=== PATIENT | female | born 1955 | race Caucasian/White ===

== ENCOUNTER → 2016-04-23 | Outpatient (CLI) | payer OTHER ==
--- NOTE | 2016-04-23 14:55 | PN ---
DATE OF SERVICE: 04/23/2016 60-year-old lady has been followed in the sleep center for treatment of severe obstructive sleep apnea-hypopnea syndrome. We discussed results of sleep studies with the patient and family in details. Sleep study showed apnea-hypopnea index 68.3 with oxygen desaturation to 69.8. Presently the patient is on treatment with CPAP with a pressure of 12 cm of water and oxygen supplement. With this therapy, patient feels better during this sleep and during the day. She is not as sleepy as before. I checked her CPAP unit. CPAP pressure is 12 cm of water. Usage is 100% of the time more than 4 hours. Leak is not significant up to 2 liters per minute. Apnea-hypopnea index reading from the machine for the last month is only 1.3. [place] Sleepiness Scale today is only 2. MEDICATIONS: 1. Albuterol. 2. Furosemide. 3. Potassium supplement. 4. Aspirin. 5. Montelukast. 6. Spiriva. During physical exam, the patient in no distress. VITAL SIGNS: BP 133/66, HR 84, RR 16. Weight 224. Temp 98.1. Oxygen saturation on 2 liters per minute oxygen supplement 92%. HEENT: EMILYRWAYLON, LUIS ARMANDOMI. LUNGS: Clear. HEART: S1, S2 regular. ABDOMEN: Obese, soft, nontender. EXTREMITIES: No edema. IMPRESSION: 1. Obstructive sleep apnea/hypopnea syndrome on full control with CPAP at 12 cm of water. Patient demonstrating 100% compliance with treatment benefiting from treatment. 2. Obesity. 3. Chronic obstructive pulmonary disease on treatment with oxygen 24 hours at 2 liters per minute. 4. History of smoking for about ( ) pack-years. 5. History of pulmonary hypertension. 6. Cor pulmonale. 7. Status post cholecystectomy. PLAN: 1. Continue treatment with the CPAP every night for the whole night. 2. Losing weight. 3. Sleep hygiene with regular time in bed for at least 8 hours. 4. No driving if feeling any sleepiness. 5. Prescription for all necessary CPAP supplies, including tube, filters mask. Thank you very much for allowing me to participate in the management of your patient. Sincerely, Hernesto Mckeon MD, PhD, FAASM. Diplomat of [place] Board of [employer], Sleep Medicine Board by [place] [employer] [place] [employer] of [employer] Medicine Host Coordinator of [facility] [place]
== END | disposition home or self-care (01) ==

== ENCOUNTER → 2016-08-24 | Outpatient (CLI) | payer OTHER ==
[2016-08-24 10:05] LABS: Bilirubin, Delta 0.3 mg/dL (0.0-0.2); Total Bilirubin 0.8 mg/dL (0.2-1.3)
--- NOTE | 2016-08-24 10:59 | US ---
EXAMINATION TYPE: US abdomen complete DATE OF EXAM: 08/24/2016 9:29 AM COMPARISON: 12/02 CLINICAL HISTORY: Fatty liver K76.0. larger habitus, some limitations as pt is sob, on o2 EXAM MEASUREMENTS: Liver Length: 16.6 cm Gallbladder Wall: Surgically absent CBD: 0.9 cm Spleen: 9.4 cm Right Kidney: 10.2 x 3.5 x 6.0 cm Left Kidney: 10.5 x 4.0 x 5.9 cm Some exam limitations due to pt size and increased bowel gas. Pancreas: gassed out Liver: wnl as seen, some limitations Gallbladder: surgically absent CBD: wnl Spleen: wnl Right Kidney: wnl Left Kidney: wnl Upper IVC: wnl Abd Aorta: gassed out The liver is homogenous. The intrahepatic portion of the IVC and proximal abdominal aorta are within normal limits. Common bile duct is unremarkable. The visualized portions of the pancreas are homog enous. The spleen is unremarkable. Kidneys are symmetric and free of hydronephrosis. No renal lesi ons are seen. IMPRESSION: No significant abnormality.
== END | disposition home or self-care (01) ==
LOC: RADUSWWP 08:50
DX: K76.0 Fatty (change of) liver, not elsewhere classified (principal)
CPT/HCPCS: 36415; 76700; 80076; 82105

== ENCOUNTER → 2017-02-23 | Outpatient (CLI) | payer OTHER ==
[2017-02-23 09:52] LABS: Basophils # (A) 0.1 k/uL (0-0.2); Basophils % (A) 1 %; CH 28.2; CHCM 31.4; Eosinophils # (A) 0.3 k/uL (0-0.7); Eosinophils % (A) 3 %; HCT 45.4 % (34.0-46.0); HGB 14.1 gm/dL (11.4-16.0); Luc # (Auto) 0.15; Luc % (Auto) 2; Lymphocytes # (A) 1.7 k/uL (1.0-4.8); Lymphocytes % (A) 17 %; MCH 28.1 pg (25.0-35.0); MCHC 31.2 g/dL (31.0-37.0); MCV 90.1 fL (80.0-100.0); Mean Platelet Volume 7.1; Monocytes # (A) 0.3 k/uL (0-1.0); Monocytes % (A) 3 %; Neutrophils # (A) 7.6 k/uL (1.3-7.7); Neutrophils % (A) 75 %; RBC 5.03 m/uL (3.80-5.40); RDW 14.7 % (11.5-15.5); WBC 10.1 k/uL (3.8-10.6); WBC (Perox) 9.72
[2017-02-23 10:10] LABS: ALT 32 U/L (9-52); AST 19 U/L (14-36); Alkaline Phosphatase 117 U/L (38-126); Anion Gap 9 mmol/L; Blood Urea Nitrogen 11 mg/dL (7-17); Calcium 9.6 mg/dL (8.4-10.2); Carbon Dioxide 30 mmol/L (22-30); Chloride 103 mmol/L (98-107); Cholesterol 178 mg/dL (<200); Glucose 108 mg/dL (74-99); HDL Cholesterol 66 mg/dL (40-60); Non-African American GFR(MDRD) >60 (>60 ml/min/1.73 sqM); Potassium 4.1 mmol/L (3.5-5.1); Sodium 142 mmol/L (137-145); Total Bilirubin 0.6 mg/dL (0.2-1.3); Total Protein 7.1 g/dL (6.3-8.2)
== END | disposition home or self-care (01) ==
LOC: LABWHC1 09:12
DX: Z00.00 Encounter for general adult medical examination without abnormal findings (principal)
CPT/HCPCS: 36415; 80053; 80061; 82306; 84443; 85025

== ENCOUNTER → 2017-04-16 | Outpatient (CLI) | payer OTHER ==
--- NOTE | 2017-04-20 09:47 | MM ---
Reason for exam: screening (asymptomatic). Last mammogram was performed 1 year and 4 months ago. History: Patient is postmenopausal. Physical Findings: A clinical breast exam by your physician is recommended on an annual basis and results should be correlated with mammographic findings. MG Screening Mammo w CAD Bilateral CC and MLO view(s) were taken. Prior study comparison: December 03, 2015, bilateral MG screening mammo w CAD. October 16, 2014, bilateral MG screening mammo w CAD. The breast tissue is heterogeneously dense. This may lower the sensitivity of mammography. Stable benign calcifications. No significant changes when compared with prior studies. ASSESSMENT: Benign, BI-RAD 2 RECOMMENDATION: Routine screening mammogram of both breasts in 1 year.
== END | disposition home or self-care (01) ==
LOC: RADMAMWWP 11:36
PROVIDERS: ATTEND Internal Medicine
DX: Z12.31 Encounter for screening mammogram for malignant neoplasm of breast (principal)

== ENCOUNTER → 2017-07-15 | Outpatient (CLI) | payer OTHER ==
--- NOTE | 2017-07-15 11:18 | PN ---
PROGRESS NOTE DATE OF SERVICE: 07/15/2017. The 61-year-old lady has been followed in Sleep Center for treatment of severe obstructive sleep apnea-hypopnea syndrome. The patient successfully continued to use her CPAP equipment every night without significant problems and sleeps well with that. [place] Sleepiness Scale today is only 2. The patient continued to use oxygen. Presently she is on 4 L/minute oxygen supplement 24 hours a day. I checked patient's CPAP unit. CPAP pressure is 12 cm of water. Usage is practically 100%, 179 out of 180 nights for usage of more than 4 hours. Average usage 6.3 hours. Apnea-hypopnea index for the last 6 months 1.0, which is perfect. MEDICATIONS: Albuterol, Ventolin, Symbicort, Ellipta, Furosemide, aspirin and montelukast. PHYSICAL EXAM: lady without distress, BP 140/66, HR 90, RR 16, height 4 feet 11 inches, weight 212, BMI 42.8, temperature 97.1. Oxygen saturation on 4 L/minute oxygen supplement 93%. Oropharynx: Low position of soft palate, very large retrognathia mass about 8 mm. ABDOMEN: Obese. Neck Supple, no JVD. Thyroid is not palpable. LUNGS Clear to percussion and to auscultation. Good air exchange. No wheezing or rhonchi. HEART S1, S2 regular. No murmurs, gallops, or rubs. ABDOMEN : Obese. Soft and nontender. Bowel sounds are present. No organomegaly appreciated. STUDENT SUCCESS COUNSELOR Awake, alert, and oriented X3. Cranial nerves 2 to 7 intact. There is no fasciculation or atrophy. noted. No focal deficits observed. Extremities: Minimal up to 1+ ankle edema. IMPRESSION: 1. Severe obstructive sleep apnea-hypopnea syndrome on full control with CPAP at 12 cm of water patient demonstrated 100% compliance with treatment benefitting from treatment. 2. Obesity patient lost 12 pounds since previous visit. 3. Chronic obstructive pulmonary disease. 4. History of pulmonary hypertension. 5. History of cor pulmonale. 6. Status post cholecystectomy. PLAN: 1. Patient will continue treatment with CPAP equipment every night for the whole night with the same regimen. 2. Prescription for all necessary CPAP supplies including mask, tube, filters. 3. Continue losing weight. 4. Sleep hygiene with regular time in bed for at least 8 hours. 5. No driving if feeling sleepiness. 6. Followup visit in 1 year or earlier if patient has any problems related to sleep. Thank you very much for allowing me to participate in management of this patient. Sincerely, Hernesot Mckeon MD, PhD, FAASM Diplomat of [employer] Board [employer] Specialties [employer] Board of Internal Medicine Software Architect of [facility] [place] MMODL / ROSIEN: [id number] /
== END | disposition home or self-care (01) ==
LOC: SLEEP 10:06
PROVIDERS: ATTEND Internal Medicine
DX: G47.33 Obstructive sleep apnea (adult) (pediatric) (principal); E66.9 Obesity, unspecified; J44.9 Chronic obstructive pulmonary disease, unspecified; Z86.79 Personal history of other diseases of the circulatory system; Z90.49 Acquired absence of other specified parts of digestive tract; Z99.89 Dependence on other enabling machines and devices; Z79.899 Other long term (current) drug therapy; Z79.82 Long term (current) use of aspirin

== ENCOUNTER → 2017-11-10 | Outpatient (CLI) | payer OTHER ==
[2017-11-10 09:00] LABS: Anion Gap 9 mmol/L; Blood Urea Nitrogen 13 mg/dL (7-17); Calcium 9.2 mg/dL (8.4-10.2); Carbon Dioxide 30 mmol/L (22-30); Chloride 100 mmol/L (98-107); Cholesterol 183 mg/dL (<200); Glucose 99 mg/dL (74-99); HDL Cholesterol 70 mg/dL (40-60); LDL Cholesterol,Calculated 97 mg/dL (0-99); Magnesium 2.2 mg/dL (1.6-2.3); Potassium 4.3 mmol/L (3.5-5.1); Sodium 139 mmol/L (137-145); Triglycerides 79 mg/dL (<150)
== END | disposition home or self-care (01) ==
LOC: LABWHC1 08:06
PROVIDERS: ATTEND Nurse Practitioner Adult Health
DX: I10 Essential (primary) hypertension (principal); E78.5 Hyperlipidemia, unspecified
CPT/HCPCS: 36415; 80048; 80061; 83735

== ENCOUNTER → 2018-05-03 | Outpatient (CLI) | payer OTHER ==
--- NOTE | 2018-05-05 16:27 | MM ---
Reason for exam: screening (asymptomatic). Last mammogram was performed 1 year and 1 month ago. History: Patient is postmenopausal. MG Screening Mammo w CAD Bilateral CC and MLO view(s) were taken. Prior study comparison: April 16, 2017, bilateral MG screening mammo w CAD. December 03, 2015, bilateral MG screening mammo w CAD. The breast tissue is heterogeneously dense. This may lower the sensitivity of mammography. Chronic nodularity in the left breast. Increased multicentric nodularity in the right breast. ASSESSMENT: Incomplete: need additional imaging evaluation, BI-RAD 0 RECOMMENDATION: Ultrasound of the right breast.
== END | disposition home or self-care (01) ==
LOC: RADMAMWWP 09:29
PROVIDERS: ATTEND Internal Medicine
DX: Z12.31 Encounter for screening mammogram for malignant neoplasm of breast (principal)
CPT/HCPCS: 77067

== ENCOUNTER → 2018-05-16 | Outpatient (CLI) | payer OTHER ==
--- NOTE | 2018-05-17 09:27 | USB ---
Reason for exam: additional evaluation requested from abnormal screening. History: Patient is postmenopausal. Physical Findings: Nurse did not find any significant physical abnormalities on exam. US Breast Workup RT Right complete breast ultrasound includes all four quadrants, the retroareolar region and axilla. Finding demonstrates a 0.5 x 0.3 x 0.5cm cystic lesion at 7 o'clock and a 0.4 x 0.3 x 0.4cm cystic lesion at 10 o'clock. These results were verbally communicated with the patient and result sheet given to the patient on 05/16/18. ASSESSMENT: Benign, BI-RAD 2 RECOMMENDATION: Return to routine screening mammogram schedule for both breasts.
== END | disposition home or self-care (01) ==
LOC: RADUSWWP 08:27
PROVIDERS: ATTEND Internal Medicine
DX: R92.8 Other abnormal and inconclusive findings on diagnostic imaging of breast (principal)

== ENCOUNTER → 2018-10-13 | Outpatient (CLI) | payer OTHER ==
--- NOTE | 2018-10-13 13:08 | SFUN ---
SLEEP CENTER FOLLOW UP NOTE DATE OF SERVICE: 10/13/2018 This 63-year-old lady has been followed in sleep center for treatment of obstructive sleep apnea-hypopnea syndrome. The patient continued to use her CPAP equipment every night for the whole night. No problem with the mask or machine. No snoring with the machine. [place] Sleepiness Scale today is 6, which is in normal range. I checked patient's CPAP unit, CPAP pressure is 12 cm of water. Usage is 29 out of 30 nights for more than 4 hours. Average usage is 6 hours. Leak is 26 L/minute which is borderline for the full face mask. Apnea-hypopnea index reading for the last month only 0.5, which is absolutely perfect. Patient continued to use her oxygen 4 L/minute 24 hours per day. MEDICATIONS: Albuterol, Ventolin, Symbicort, Ellipta, furosemide, aspirin, montelukast. PHYSICAL EXAMINATION: During physical exam, patient in no distress. VITAL SIGNS: BP 139/67, HR 82, RR 16, height 4 feet 11 inches, weight 215 pounds, body mass index 43.2, temperature 97, oxygen saturation at 4 L/minute of oxygen 91%. HEENT: PERRLA, EOMI. Oropharynx low position of soft palate, retrognathia about 8 mm. NECK: Supple, no JVD. Thyroid is not palpable. LUNGS: Clear to percussion and to auscultation. Good air exchange. No wheezing or rhonchi. HEART: S1, S2 regular. No murmurs, gallops, or rubs. ABDOMEN: Obese. EXTREMITIES: No clubbing or cyanosis. MEAT LUGGER: Awake, alert, and oriented X3. Cranial nerves 2 to 7 intact. There is no fasciculation or atrophy. noted. No focal deficits observed. IMPRESSION: 1. Severe obstructive sleep apnea-hypopnea syndrome. The patient demonstrated 100% compliance with treatment, benefitting from treatment, normal respiration according to reading from the machine. The patient continued to use oxygen 4 L/minute 24 hours a day. 2. Obesity. Patient increased her weight around 3 pounds comparing with the visit one year ago. 3. Chronic obstructive pulmonary disease. 4. History of pulmonary hypertension. 5. History of cor pulmonale. 6. Status post cholecystectomy. PLAN: 1. Patient will continue to use CPAP equipment every night. 2. Losing weight. 3. Sleep hygiene with regular time in bed for at least 8 hours. 4. No driving if feeling any sleepiness. 5. Prescription for all necessary CPAP supplies including mask, tube, filters. Thank you very much for allowing me to participate in management of your patient. Sincerely, Hernesto Mckeon MD, PhD, FAASM Diplomat of [place] Board of Medical Specialties [place] Board of Internal Medicine Office Executive of [facility] [place] MMODL / ROSIEN: [id number] /
== END ==
LOC: SLEEP 11:22
PROVIDERS: ATTEND Internal Medicine
DX: G47.33 Obstructive sleep apnea (adult) (pediatric) (principal); E66.9 Obesity, unspecified; J44.9 Chronic obstructive pulmonary disease, unspecified; I27.20 Pulmonary hypertension, unspecified; I27.81 Cor pulmonale (chronic); Z90.49 Acquired absence of other specified parts of digestive tract; Z99.89 Dependence on other enabling machines and devices; Z79.899 Other long term (current) drug therapy; Z79.82 Long term (current) use of aspirin

== ENCOUNTER → 2019-03-24 | Outpatient (CLI) | payer OTHER ==
[2019-03-24 17:12] LABS: African American GFR (CKD) 112.4 (60.0-200.0); Albumin 4.2 g/dL (3.80-4.90); Albumin/Globulin Ratio 1.83 (1.60-3.17); Anion Gap 8.1 mmol/L (4.00-12.00); BUN/Creat Ratio 21.67 Ratio (12.00-20.00); Calcium 9.4 mg/dL (8.7-10.3); Carbon Dioxide 31.9 mmol/L (21.6-31.8); Chol/HDL Ratio 2.71; Globulin 2.3 g/dL (1.6-3.3); LDL Cholesterol,Calculated 90.6 mg/dL (0.0-131.0); Potassium 4.7 mmol/L (3.5-5.5); Total Bilirubin 0.6 mg/dL (0.3-1.2); Total Protein 6.5 g/dL (6.2-8.2); VLDL Calculation 17.4 mg/dL (5.00-40.00)
== END | disposition home or self-care (01) ==
LOC: LABWHC1 10:17
DX: I10 Essential (primary) hypertension (principal); I27.20 Pulmonary hypertension, unspecified; E55.9 Vitamin D deficiency, unspecified
CPT/HCPCS: 36415; 80053; 80061; 82306; 84443

== ENCOUNTER → 2019-10-03 | Outpatient (CLI) | payer OTHER ==
--- NOTE | 2019-10-05 11:22 | MM ---
Reason for exam: screening (asymptomatic). Last mammogram was performed 1 year and 5 months ago. History: Patient is postmenopausal. Physical Findings: A clinical breast exam by your physician is recommended on an annual basis and results should be correlated with mammographic findings. MG Screening Mammo w CAD Bilateral CC and MLO view(s) were taken. XCCL view(s) were taken of the left breast. Prior study comparison: May 03, 2018, bilateral MG screening mammo w CAD. April 16, 2017, bilateral MG screening mammo w CAD. There are scattered fibroglandular densities. There are benign appearing round calcifications bilaterally. There is chronic nodularity bilaterally. There is no new dominant lesion. Ultrasound of right breast in 2019 demonstrated simple cysts. Stable prominent bilateral axillary lymph nodes. ASSESSMENT: Benign, BI-RAD 2 RECOMMENDATION: Routine screening mammogram of both breasts in 1 year.
== END | disposition home or self-care (01) ==
LOC: RADMAMWWP 09:28
PROVIDERS: ATTEND Family Medicine
DX: Z12.31 Encounter for screening mammogram for malignant neoplasm of breast (principal)
CPT/HCPCS: 77067

== ENCOUNTER → 2020-02-24 | Outpatient (CLI) | payer OTHER ==
--- NOTE | 2020-02-24 16:08 | XR ---
EXAMINATION TYPE: XR chest 2V DATE OF EXAM: 02/24/2020 CLINICAL HISTORY: J44.9 J43.9 Z99.81 J84.10. TECHNIQUE: Frontal and lateral view of the chest. COMPARISON: 11/23/2015 chest radiograph FINDINGS: The cardiomediastinal silhouette is within normal limits for size. Pulmonary vasculature i s normal. Opacity at the right medial base with silhouetting of the right heart border likely represe nts atelectasis. There is no pleural effusion, or pneumothorax seen. The osseous structures are intac t. IMPRESSION: Atelectasis of the right middle lobe. Otherwise no acute cardiopulmonary process.
== END | disposition home or self-care (01) ==
LOC: RADXRMAIN 12:13
PROVIDERS: ATTEND Family Medicine
DX: J98.11 Atelectasis (principal); Z99.81 Dependence on supplemental oxygen
CPT/HCPCS: 71046

== ENCOUNTER → 2020-03-06 | Outpatient (CLI) | payer OTHER ==
--- NOTE | 2020-03-06 20:48 | SFUN ---
SLEEP CENTER FOLLOW UP NOTE DATE OF SERVICE: 03/06/2020 This is a 64-year-old lady who has been followed in Sleep Center for treatment of obstructive sleep apnea-hypopnea syndrome. Patient successfully continues to use her CPAP equipment every night for the whole night without significant problems related to mask fitting, pressure, or humidification. [place] Sleepiness Scale today is 7. I checked her CPAP unit. CPAP pressure is 12 cm of water, usage 29/30 nights for more than 4 hours. Average usage is 6 hours per night. Leak is 13 L/minute which is acceptable. Apnea-hypopnea index only 0.2, which is absolutely perfect. MEDICATIONS: Albuterol, Ventolin, furosemide 20 mg once a day, aspirin 81 mg once a day, montelukast 10 mg once a day, Symbicort inhaler, Spiriva inhaler. PHYSICAL EXAMINATION: GENERAL: A pleasant patient without any distress. VITAL SIGNS: BP 128/83, HR 90, RR 15. Height 4 feet 11 inches, weight 227, BMI 45.8, temperature 98.0, oxygen saturation 95% HEENT: PERRLA, EOMI, evaluation of oropharynx showed tongue protrudes midline. Low position of soft palate. Significant retrognathia. NECK: Supple, no JVD. Thyroid is not palpable. LUNGS: Clear to percussion and to auscultation. Good air exchange. No wheezing or rhonchi. HEART: S1, S2 regular. No murmurs, gallops, or rubs. ABDOMEN: Soft and nontender. Bowel sounds are present. No organomegaly appreciated. Obese. EXTREMITIES: No clubbing or cyanosis. POPULATION HEALTH MANAGER: Awake, alert, and oriented X3. Cranial nerves 2 to 7 intact. There is no fasciculation or atrophy. noted. No focal deficits observed. IMPRESSION: 1. Obstructive sleep apnea-hypopnea syndrome in severe range. Patient demonstrated 100% compliance with treatment and benefitting from treatment. 2. Obesity. 3. Chronic obstructive pulmonary disease. 4. History of pulmonary hypertension. 5. History of cor pulmonale. 6. Status post cholecystectomy. PLAN: 1. Patient will continue to use PAP equipment every night for the whole night. 2. Sleep hygiene with regular time in bed for at least 7-1/2 to 8 hours. 3. Precautions related to driving. No driving if feeling sleepiness. 4. I will maintain all necessary prescription for PAP supplies including mask, tube, filters. 5. Watching weight. 6. No driving if feeling sleepiness. 7. Follow-up visit in 6 months or earlier if patient has any problems. Thank you very much for allowing me to participate in the management of your patient. Sincerely, Hernesto Mckeon MD, PhD, FAASM Diplomat of [place] Board of Medical Specialties [employer] Board of Internal Medicine Airport Ramp Supervisor of [facility] [place] MMODL / ROSIEN: [id number] /
== END | disposition home or self-care (01) ==
LOC: SLEEP 13:33
PROVIDERS: ATTEND Internal Medicine
DX: G47.33 Obstructive sleep apnea (adult) (pediatric) (principal); J44.9 Chronic obstructive pulmonary disease, unspecified; Z86.79 Personal history of other diseases of the circulatory system; Z90.49 Acquired absence of other specified parts of digestive tract; Z79.899 Other long term (current) drug therapy; Z79.82 Long term (current) use of aspirin; Z79.51 Long term (current) use of inhaled steroids; Z99.89 Dependence on other enabling machines and devices

== ENCOUNTER → 2020-09-26 | Outpatient (CLI) | payer MEDICARE, OTHER ==
--- NOTE | 2020-09-27 07:36 | SFUN ---
SLEEP CENTER FOLLOW UP NOTE DATE OF SERVICE: 09/26/2020 This 65-year-old lady has been followed in Sleep Center for treatment of obstructive sleep apnea-hypopnea syndrome. The patient successfully continues to use her CPAP equipment every night for the whole night. Sleeps well with the machine. No sleepiness during the day. [place] Sleepiness Scale is 3. She is on oxygen supplement 24 hours at 4 L/minute. She came for the appointment with oxygen supplement at [facility]. I checked her CPAP unit. Pressure is 12 cm of water, usage is 28/30 nights and 25/30 minutes more than 4 hours, average usage 5.2 hours per night. Leak is only 1 L/minute which indicate very good fitting of the mask. Apnea-hypopnea index is only 0.2, which is absolutely perfect. MEDICATIONS: Albuterol, Ventolin, furosemide 20 mg once a day, potassium supplement, aspirin 81 mg once a day, Montelukast 10 mg once a day, Symbicort 2 puffs twice a day, Spiriva once a day. PHYSICAL EXAMINATION: GENERAL: Patient in no distress. VITAL SIGNS: BP 121/76, HR 83, RR 18, height 4 feet 11 inches, weight 229.4 pounds, body mass index 46.2, temperature 97.7, oxygen saturation at room air 94%. HEENT: PERRLA, EOMI, evaluation of oropharynx showed tongue protrudes midline. Low position of soft palate. Significant retrognathia. NECK: Supple, no JVD. Thyroid is not palpable. LUNGS: Clear to percussion and to auscultation. Good air exchange. No wheezing or rhonchi. HEART: S1, S2 regular. No murmurs, gallops, or rubs. ABDOMEN: Obese, soft and nontender. Bowel sounds are present. No organomegaly appreciated. EXTREMITIES: No clubbing or cyanosis. BULL LADLE TENDER: Awake, alert, and oriented X3. Cranial nerves 2 to 7 intact. There is no fasciculation or atrophy. noted. No focal deficits observed. IMPRESSION: 1. Severe obstructive sleep apnea-hypopnea syndrome. Patient demonstrated great compliance with treatment, benefitting from treatment. 2. Obesity. 3. Chronic obstructive pulmonary disease. 4. History of pulmonary hypertension. 5. History of cor pulmonale. 6. Status post cholecystectomy. PLAN: 1. Patient will continue to use PAP equipment every night for the whole night. 2. Sleep hygiene with regular time in bed for at least 7-1/2 to 8 hours. 3. Precautions related to driving. No driving if feeling sleepiness. 4. I will maintain all necessary prescription for PAP supplies including mask, tube, filters. 5. Watching weight. 6. Follow-up visit in 6 months or earlier if patient has any problems. Thank you very much for allowing me to participate in the management of your patient. Sincerely, Hernesto Mckeon MD, PhD, FAASM Diplomat of [place] Board of Medical Specialties [place] Board of Internal Medicine Internal Controls Specialist of [facility] [place] MMODL / IJN: [id number] /
== END ==
LOC: SLEEP 09:50
PROVIDERS: ATTEND Internal Medicine
DX: G47.33 Obstructive sleep apnea (adult) (pediatric) (principal); E66.9 Obesity, unspecified; J44.9 Chronic obstructive pulmonary disease, unspecified; Z90.49 Acquired absence of other specified parts of digestive tract; Z86.79 Personal history of other diseases of the circulatory system; Z68.42 Body mass index [BMI] 45.0-49.9, adult; Z99.81 Dependence on supplemental oxygen; Z87.891 Personal history of nicotine dependence

== ENCOUNTER → 2021-03-27 | Outpatient (CLI) | payer MEDICARE, OTHER ==
--- NOTE | 2021-03-27 13:22 | SFUN ---
SLEEP CENTER FOLLOW UP NOTE DATE OF SERVICE: 03/27/2021 65-year-old lady has been followed in Sleep Center for treatment of obstructive sleep apnea-hypopnea syndrome. The patient continues to use her CPAP equipment every night, getting supplies in time. Her [place] Sleepiness Scale today is 4. I checked her CPAP unit. Pressure is 12. Usage is 28/30 nights for more than 4 hours with good compliance. Leak is 1 L/minute. Apnea-hypopnea index is only 0.2 which is absolutely normal. MEDICATIONS: Albuterol, Ventolin, furosemide 40 mg once a day, aspirin 81 mg once a day, montelukast 10 mg once a day, Symbicort 2 puffs twice a day, Spiriva 1 cap once a day, metformin 500 mg twice a day, pantoprazole 40 mg once a day, atorvastatin 10 mg once a day. PHYSICAL EXAMINATION: GENERAL: Patient in no distress. BP 142/70, HR 108, RR 20, height 4 feet 11 inches, weight 222.0, temperature 97.4, body mass index 44.8, oxygen 94% on 4 L/minute. OROPHARYNX: Low position of soft palate. NECK: Supple, no JVD. Thyroid is not palpable. LUNGS: Clear to percussion and to auscultation. Good air exchange. No wheezing or rhonchi. HEART: S1, S2 regular. Tachycardia. No murmurs, gallops, or rubs. ABDOMEN: Obese. Soft and nontender. Bowel sounds are present. No organomegaly appreciated. EXTREMITIES: No clubbing or cyanosis. FENDER MECHANIC APPRENTICE: Awake, alert, and oriented X3. Cranial nerves 2 to 7 intact. There is no fasciculation or atrophy. noted. No focal deficits observed. IMPRESSION: 1. Severe obstructive sleep apnea-hypopnea syndrome. Patient demonstrated good compliance with treatment. Normal respiration according to reading from the machine. 2. Chronic obstructive pulmonary disease. The patient is on oxygen supplement 24 hours. 3. Obesity. 4. History of pulmonary hypertension. 5. History of cor pulmonale. 6. Status post cholecystectomy. PLAN: 1. Patient will continue to use PAP equipment every night for the whole night. 2. Sleep hygiene with regular time in bed for at least 7-1/2 to 8 hours. 3. Precautions related to driving. No driving if feeling sleepiness. 4. I will maintain all necessary prescription for PAP supplies including mask, tube, filters. 5. Watching weight. 6. Follow-up visit in 6 months or earlier if patient has any problems. Thank you very much for allowing me to participate in the management of your patient. Sincerely, Hernesto Mckeon MD, PhD, FAASM Diplomat of [place] Board of Medical Specialties Sleep Medicine Board of [place] Board of Internal Medicine Fitness Attendant of [facility] [place] MMOTISL / THERESA: [id number] /
== END ==
LOC: SLEEP 11:28
PROVIDERS: ATTEND Internal Medicine
DX: G47.33 Obstructive sleep apnea (adult) (pediatric) (principal); J44.9 Chronic obstructive pulmonary disease, unspecified; Z99.81 Dependence on supplemental oxygen; E66.9 Obesity, unspecified; Z86.79 Personal history of other diseases of the circulatory system; Z90.49 Acquired absence of other specified parts of digestive tract; Z87.09 Personal history of other diseases of the respiratory system; Z68.41 Body mass index [BMI] 40.0-44.9, adult; Z99.89 Dependence on other enabling machines and devices; Z87.891 Personal history of nicotine dependence

== ENCOUNTER → 2021-05-20 | Outpatient (CLI) | payer MEDICARE, OTHER ==
[2021-05-20 18:23] LABS: Basophils # (A) 0.05 X 10*3/uL (0.00-0.10); Basophils % (A) 0.5 %; Eosinophils # (A) 0.18 X 10*3/uL (0.04-0.35); Eosinophils % (A) 1.9 %; HCT 41.8 % (37.2-46.3); HGB 12.4 g/dL (12.0-15.0); Lymphocytes # (A) 1.41 X 10*3/uL (0.90-5.00); Lymphocytes % (A) 14.7 %; MCH 26.7 pg (27.0-32.0); MCHC 29.7 g/dL (32.0-37.0); MCV 90.1 fL (80.0-97.0); Mean Platelet Volume 9.9 fL (9.5-12.2); Monocytes # (A) 0.52 X 10*3/uL (0.20-1.00); Monocytes % (A) 5.4 %; Neutrophils # (A) 7.39 X 10*3/uL (1.80-7.70); Platelet Count 353 X 10*3/uL (140-440); RBC 4.64 X 10*6/uL (4.10-5.20); RDW 15.1 % (11.5-14.5)
[2021-05-20 18:36] LABS: ALT 11 U/L (8-44); AST 13 U/L (13-35); African American GFR (CKD) 105.4 (60.0-200.0); Albumin 4.2 g/dL (3.8-4.9); Albumin/Globulin Ratio 1.56 (1.60-3.17); Alkaline Phosphatase 111 U/L (41-126); BUN/Creat Ratio 18.57 Ratio (12.00-20.00); Calcium 9.5 mg/dL (8.7-10.3); Carbon Dioxide 28.7 mmol/L (20.0-27.5); Chloride 100 mmol/L (96-109); Chol/HDL Ratio 2.02 Ratio; Globulin 2.7 g/dL (1.6-3.3); Glucose 100 mg/dL (70-110); LDL Cholesterol,Calculated 53.3 mg/dL (0.0-131.0); Non-African American GFR(CKD) 90.9 (60.0-200.0); Potassium 3.8 mmol/L (3.5-5.5); Sodium 142 mmol/L (135-145); Total Protein 6.9 g/dL (6.2-8.2); VLDL Calculation 14.98 mg/dL (5.00-40.00)
== END | disposition home or self-care (01) ==
LOC: LABWHC1 10:54
PROVIDERS: ATTEND Internal Medicine Geriatric Medicine
DX: D64.9 Anemia, unspecified (principal); E78.5 Hyperlipidemia, unspecified; R73.9 Hyperglycemia, unspecified
CPT/HCPCS: 36415; 80053; 80061; 83036; 85025

== ENCOUNTER → 2021-09-25 | Outpatient (CLI) | payer MEDICARE ==
--- NOTE | 2021-09-25 11:35 | P.PN ---
Subjective DATE: 09/25/2021 FOLLOW UP VISIT. Patient with obstructive sleep apnea hypopnea syndrome return to sleep center for follow-up visit. Patient touched but done over the machine and was afraid that she changed pressure in the machine. Subsequently she did not use machine for several weeks, getting PAP supplies in time. The patient does not have significant problems with the mask. [place] sleepiness scale is 6. I checked information from PAP unit. PAP unit pressure 12 cm H2O. When patient used CPAP unit usage was more then 90 % for more then 4 hours, average 5.3 hours per night. Leak is 1 l/m, which is in acceptable range. Apnea Hypopnea Index is 0.4, which is normal. MEDICATIONS:1. Albuterol 2. Ventolin 3. Furosemide 40 mg once a day 4. Aspirin 81 mg once a day 5. Montelucast 10 mg once a day. 6. Symbicort 7. Spiriva 8. Metformin 500 mg twice a day. During physical exam: GENERAL: A pleasant patient without any distress. VITAL SIGNS: BP 130/70, HR 97, RR 20, weight 219.6, temperature 97.6, oxygen saturation at room air 89. HEENT: PERRLA, EOMI.low position of soft palate . NECK: Supple. No JVD. LUNGS: Clear to percussion and to auscultation. Good air exchange. No wheezing or rhonchi. HEART: S1, S2 regular. ABDOMEN: Soft and nontender. Obese EXTREMITIES: No clubbing or cyanosis. RESEARCH ASSOCIATE POLICY: Awake, alert, and oriented x3. No focal deficit. Impressions: 1. Obstructive sleep apnea-hypopnea syndrome. Normal respiration on CPAP. 2. Chronic obstructive pulmonary disease. The patient is on oxygen supplement 24 hours. 3. Obesity. 4. History of pulmonary hypertension. 5. History of cor pulmonary. 6. Status post cholecystectomy. Plan: 1. Continue using PAP equipment every night for the whole night. 2. To change air filter at least 1-2 times per month. 3. PAP unit should stay lower then position of the head. 4. Advised patient to remove all remaining water from humidifier canister daily and make it dry after each usage. Refill canister with fresh distilled water before each usage. 5. Sleep hygiene with regular time in bed for at least 8 hours. 6. Precautions related to driving. No driving if feel any sleepiness. 7. I will maintain prescription for PAP supplies including mask, tube, filters. 8. Follow up visit in 6 months or earlier if patient has any problems. 9. Watching weight. Thank you very much for allowing me to participate in the management of your patient. Hernesto Mckeon MD, PhD, FAASM. Diplomat of [place] Board of Sleep Medicine, Sleep Medicine Board by [place] [employer] of Internal Medicine Brine Maker of [facility] [place]
== END ==
LOC: SLEEP 10:47
PROVIDERS: ATTEND Internal Medicine
DX: G47.33 Obstructive sleep apnea (adult) (pediatric) (principal); Z99.89 Dependence on other enabling machines and devices; J44.9 Chronic obstructive pulmonary disease, unspecified; Z99.81 Dependence on supplemental oxygen; E66.9 Obesity, unspecified; I27.20 Pulmonary hypertension, unspecified; Z90.49 Acquired absence of other specified parts of digestive tract; Z79.51 Long term (current) use of inhaled steroids; Z79.899 Other long term (current) drug therapy; Z87.891 Personal history of nicotine dependence

== ENCOUNTER → 2022-04-09 | Outpatient (CLI) | payer MEDICARE, OTHER ==
--- NOTE | 2022-04-09 12:12 | P.PN ---
Subjective DATE: 04/09/2022 FOLLOW UP VISIT. Patient with obstructive sleep apnea hypopnea syndrome return to sleep center for follow-up visit. Information from previous visit have been reviewed. The patient does not have significant problems with the mask, PAP unit and humidification. [place] sleepiness scale is 5, which is normal. I checked information from PAP unit. PAP unit pressure 12 cm H2O. Usage is only 9 nights. Leak is 1 l/m, which is in acceptable range. Apnea Hypopnea Index is 0.1, which is normal. MEDICATIONS:1. Pantoprazole 40 mg once a day 2. Atorvastatin 10 mg once a day 3. Symbicort 4. Metformin 500 mg twice a day 5. Albuterol 6. Ventolin 7. Aspirin 8. Montelucast furosemide During physical exam: GENERAL: A pleasant patient without any distress. VITAL SIGNS: BP 148/65, HR 113, RR 20 , weight 217, body mass index 43.6, temperature 98.2, oxygen saturation at room air 92 % on 4 L/m oxygen supplement . HEENT: PERRLA, EOMI.low position of soft palate . NECK: Supple. No JVD. LUNGS: Clear to percussion and to auscultation. Good air exchange. No wheezing or rhonchi. HEART: S1, S2 regular. ABDOMEN: Soft and nontender. Obese EXTREMITIES: No clubbing or cyanosis. WEED BURNER: Awake, alert, and oriented x3. No focal deficit. Impressions: 1. Obstructive sleep apnea-hypopnea syndrome. Patient did not use CPAP equipment recently. 2. COPD, patient is on oxygen supplement 24 hours. 3. Obesity. 4. History of pulmonary hypertension. 5. History of cor pulmonary. 6. Status post cholecystectomy. Plan: 1. Continue using PAP equipment every night for the whole night. I discussed with patient necessity to use CPAP. Patient promised to restart usage of CPAP every night for the whole night 2. To change air filter at least 1-2 times per month. 3. PAP unit should stay lower then position of the head. 4. Advised patient to remove all remaining water from humidifier canister daily and make it dry after each usage. Refill canister with fresh distilled water before each usage. 5. Sleep hygiene with regular time in bed for at least 8 hours. 6. Precautions related to driving. No driving if feel any sleepiness. 7. I will maintain prescription for PAP supplies including mask, tube, filters. 8. Follow up visit in 3 months or earlier if patient has any problems. 9. Watching and losing weight. Thank you very much for allowing me to participate in the management of your patient. Hernesto Mckeon MD, PhD, FAASM. Diplomat of [place] Board [employer] Medicine, Sleep Medicine Board by [place] Board of [employer] Medicine Substitute Teacher of [facility] [place]
== END ==
LOC: SLEEP 10:33
PROVIDERS: ATTEND Internal Medicine
DX: G47.33 Obstructive sleep apnea (adult) (pediatric) (principal); J44.9 Chronic obstructive pulmonary disease, unspecified; E66.9 Obesity, unspecified; Z86.79 Personal history of other diseases of the circulatory system; Z98.890 Other specified postprocedural states; Z87.891 Personal history of nicotine dependence
CPT/HCPCS: 99212

== ENCOUNTER → 2022-07-22 | Outpatient (CLI) | payer MEDICARE, OTHER ==
--- NOTE | 2022-07-22 12:07 | P.PN ---
Subjective DATE: 07/22/2022 FOLLOW UP VISIT. Patient with obstructive sleep apnea hypopnea syndrome return to sleep center for follow-up visit. Information from previous visit have been reviewed. Patient is using PAP equipment every night for the whole night, getting PAP supplies in time. The patient does not have significant problems with the mask, PAP unit and humidification. [place] sleepiness scale is 6, which is acceptable. I checked information from PAP unit and explained it to the patient in details. PAP unit pressure 12 cm H2O. Usage is 100 % for more then 4 hours, average 4.9 hours per night. Leak is only l/m, which is in great range. Apnea Hypopnea Index is perfect 0.1. MEDICATIONS:1. Albuterol 2. Ventolin 3. Furosemide 40 mg once a day 4. Atorvastatin 10 mg once a day 5. Metformin 500 mg twice a day 6. Pantoprazole 40 mg once a day Patient is on oxygen supplement 4 L/m 24 hours a day. During physical exam: GENERAL: A pleasant patient without any distress. VITAL SIGNS: BP 140/78, HR 98, RR 20 , weight 219, temperature 98.2, oxygen saturation on oxygen supplement 4 L/m 90 % . HEENT: PERRLA, EOMI.low position of soft palate, Mallapati 3 . NECK: Supple. No JVD. LUNGS: Few wheezes HEART: S1, S2 regular. ABDOMEN: Soft and nontender. Obese EXTREMITIES: No clubbing or cyanosis. RECREATION ATTENDANT: Awake, alert, and oriented x3. No focal deficit. Impressions: 1. Obstructive sleep apnea-hypopnea syndrome. Patient demonstrated great compliance with treatment, benefiting from treatment. 2. COPD, on oxygen supplement 4 L/m for 24 hours. 3. Obesity, body mass index 44.2, patient increased weight on 2 pounds comparing with previous visit. 4. History of pulmonary hypertension. 5. History of cor pulmonary. 6. Status post cholecystectomy. Plan: 1. Continue using PAP equipment every night for the whole night. 2. To change air filter at least 1-2 times per month. 3. PAP unit should stay lower then position of the head. 4. Advised patient to remove all remaining water from humidifier canister daily and make it dry after each usage. Refill canister with fresh distilled water before each usage. 5. Sleep hygiene with regular time in bed for at least 8 hours. 6. Precautions related to driving. No driving if feel any sleepiness. 7. I will maintain prescription for PAP supplies including mask, tube, filters. 8. Watching and losing weight. 9. Follow up visit in 6 months or earlier if patient has any problems. Thank you very much for allowing me to participate in the management of your patient. Hernesto Mckeon MD, PhD, FAASM. Diplomat of [place] Board [employer] Medicine, Sleep Medicine Board by [place] [employer] Medicine Foot Orthopedist of [facility] [place]
== END ==
LOC: SLEEP 11:13
PROVIDERS: ATTEND Internal Medicine
DX: G47.33 Obstructive sleep apnea (adult) (pediatric) (principal); E66.9 Obesity, unspecified; I27.20 Pulmonary hypertension, unspecified; J44.9 Chronic obstructive pulmonary disease, unspecified; Z68.41 Body mass index [BMI] 40.0-44.9, adult; Z79.84 Long term (current) use of oral hypoglycemic drugs; Z79.899 Other long term (current) drug therapy; Z90.49 Acquired absence of other specified parts of digestive tract; Z99.81 Dependence on supplemental oxygen; Z99.89 Dependence on other enabling machines and devices; Z87.891 Personal history of nicotine dependence
CPT/HCPCS: 99212

== ENCOUNTER → 2023-01-27 | Outpatient (CLI) | payer MEDICARE, OTHER ==
--- NOTE | 2023-01-27 12:05 | P.PN ---
Subjective DATE: 01/27/2023 FOLLOW UP VISIT. Patient with obstructive sleep apnea hypopnea syndrome return to sleep center for follow-up visit. Information from previous visit have been reviewed. Patient is using PAP equipment with oxygen supplement at 4 L/m every night for the whole night, getting PAP supplies in time. The patient does not have significant problems with the mask, PAP unit and humidification. [place] sleepiness scale is 6, which is normal. I checked information from PAP unit. PAP unit pressure 12 cm H2O. Usage is 80 % for more then 4 hours, average 5.7 hours per night. Leak is 10 l/m, which is in acceptable range. Apnea Hypopnea Index is 0.3, which is normal. MEDICATIONS:1. Spirriva 2. Metformin 500 mg twice a day 3. Furosemide 40 mg once a day 4. Singulair 10 mg once a day 5. Flovent 6. Atorvastatin 10 mg once a day 7. Pantoprazole 40 mg once a day 8. Albuterol 9. Losartan 25 mg once a day During physical exam: GENERAL: A pleasant patient without any distress on 4 L/m oxygen supplement. VITAL SIGNS: BP 118/77, HR 98, RR 18, weight 200.4, temperature 97.8, oxygen saturation 93 % . HEENT: PERRLA, EOMI.low position of soft palate, Mallapati 3 . NECK: Supple. No JVD. LUNGS: Clear to percussion and to auscultation. Good air exchange. No wheezing or rhonchi. HEART: S1, S2 regular. ABDOMEN: Soft and nontender. Slightly obese EXTREMITIES: No clubbing or cyanosis. HIGH SCHOOL BAND TEACHER: Awake, alert, and oriented x3. No focal deficit. Impressions: 1. Obstructive sleep apnea-hypopnea syndrome. Patient demonstrated great c ompliance with treatment, benefiting from treatment. 2. COPD, on oxygen supplement 4 L/m 24 hours a day. 3. History of pulmonary hypertension. 4. History of cor pulmonary. 5. Obesity, patient lost 19 pounds since previous visit. 6. Status post cholecystectomy. Plan: 1. Continue using PAP equipment every night for the whole night. 2. To change air filter at least 1-2 times per month. 3. PAP unit should stay lower then position of the head. 4. Advised patient to remove all remaining water from humidifier canister daily and make it dry after each usage. Refill canister with fresh distilled water before each usage. 5. Sleep hygiene with regular time in bed for at least 8 hours. 6. Precautions related to driving. No driving if feel any sleepiness. 7. I will maintain prescription for PAP supplies including mask, tube, filters. 8. Watching and continue losing weight. 9. Follow up visit in 6 months or earlier if patient has any problems. Thank you very much for allowing me to participate in the management of your patient. Hernesto Mckeon MD, PhD, FAASM. Diplomat of [place] [employer] Sleep Medicine, Sleep Medicine Board by [employer] of Internal Medicine Imagery Intelligence of [facility] [place]
== END ==
LOC: 3 N SLEEP 11:01
PROVIDERS: ATTEND Internal Medicine
DX: G47.33 Obstructive sleep apnea (adult) (pediatric) (principal); E66.9 Obesity, unspecified; I27.20 Pulmonary hypertension, unspecified; J44.9 Chronic obstructive pulmonary disease, unspecified; Z79.51 Long term (current) use of inhaled steroids; Z79.899 Other long term (current) drug therapy; Z90.49 Acquired absence of other specified parts of digestive tract; Z99.81 Dependence on supplemental oxygen; Z99.89 Dependence on other enabling machines and devices; Z87.891 Personal history of nicotine dependence
CPT/HCPCS: 99212

== ENCOUNTER → 2023-08-12 | Outpatient (CLI) | payer MEDICARE, OTHER ==
--- NOTE | 2023-08-12 12:24 | P.PN ---
Subjective DATE: 08/12/2023 FOLLOW UP VISIT. Patient with obstructive sleep apnea hypopnea syndrome return to sleep center for follow-up visit. Information from previous visit have been reviewed. Patient is using PAP equipment every night for the whole night, getting PAP supplies in time. Patient is on oxygen supplement 4 L/min 24 hours. The patient does not have significant problems with the mask, PAP unit and humidification. [place] sleepiness scale is 10, which is borderline. I checked information from PAP unit. PAP unit pressure 12 cm H2O. Usage is 100% for more then 4 hours, average 5.4 hours per night. Leak is 28 l/m, which is in acceptable range. Apnea Hypopnea Index is 1.1, which is normal. MEDICATIONS:1. Albuterol 2. Ventolin 3. Furosemide 40 mg once a day 4. Montelukast 10 mg once a day 5. Atorvastatin 10 mg once a day 6. Arformoterol 7. Flovent 8. Metformin 500 mg twice a day 9. Losartan 25 mg once a day During physical exam: GENERAL: A pleasant patient without any distress. VITAL SIGNS: Please see below, weight 186.6 pounds, oxygen saturation at 4 L/min of oxygen 92%. HEENT: PERRLA, EOMI.low position of soft palate, Mallapati 3. NECK: Supple. No JVD. LUNGS: Clear to percussion and to auscultation. Good air exchange. No wheezing or rhonchi. HEART: S1, S2 regular. ABDOMEN: Soft and nontender. Obese EXTREMITIES: No clubbing or cyanosis. PREPARATORY TECHNICIAN: Awake, alert, and oriented x3. No focal deficit. Impressions: 1. Obstructive sleep apnea-hypopnea syndrome. Patient demonstrated great compliance with treatment, benefiting from treatment. 2. COPD, patient is on oxygen supplement 4 L/min 24 hours/day 7 days a week. 3. History of cor pulmonary. 4. History of pulmonary hypertension. 5. Obesity patient lost 14 pounds since previous visit. 6. Status post cholecystectomy. Plan: 1. Continue using PAP equipment every night for the whole night with oxygen supplement. 2. To change air filter at least 1-2 times per month. 3. PAP unit should stay lower then position of the head. 4. Advised patient to remove all remaining water from humidifier canister daily and make it dry after each usage. Refill canister with fresh distilled water before each usage. 5. Sleep hygiene with regular time in bed for at least 8 hours. 6. Precautions related to driving. No driving if feel any sleepiness. 7. I will maintain prescription for PAP supplies including mask, tube, filters. 8. Follow up visit in 6 months or earlier if patient has any problems. 9. Watching and continue losing weight. Thank you very much for allowing me to participate in the management of your patient. Hernesto Mckeon MD, PhD, FAASM. Diplomat of [place] Board [employer] Sleep Medicine, Sleep Medicine Board by [place] [employer] of Internal Medicine Philanthropy Officer of [facility] [place] Objective - Vital Signs Vital signs: Vital Signs Temp 97.9 F 08/12/23 12:09 Pulse 95 08/12/23 12:09 Resp 20 08/12/23 12:09 BP 122/74 08/12/23 12:09 Pulse Ox 91 L 08/12/23 12:09 FiO2 Intake & Output 08/11/23 08/12/23 08/12/23 18:59 06:59 18:59 Weight 84.538 kg
[2023-08-12 12:29] VITALS: BP 122/74; PULSE 95; RESP 20; TEMP 97.9
== END ==
LOC: 3 N SLEEP 11:39
PROVIDERS: ATTEND Internal Medicine
DX: G47.33 Obstructive sleep apnea (adult) (pediatric) (principal); J44.9 Chronic obstructive pulmonary disease, unspecified; E66.9 Obesity, unspecified; I27.20 Pulmonary hypertension, unspecified; Z90.49 Acquired absence of other specified parts of digestive tract; Z79.51 Long term (current) use of inhaled steroids; Z86.711 Personal history of pulmonary embolism; Z79.899 Other long term (current) drug therapy; Z99.89 Dependence on other enabling machines and devices; Z86.79 Personal history of other diseases of the circulatory system; Z87.891 Personal history of nicotine dependence
CPT/HCPCS: 99212

== ENCOUNTER → 2024-04-03 | Outpatient (CLI) | payer MEDICARE, OTHER ==
[2024-04-03 13:16] VITALS: BP 119/69; PULSE 94; RESP 16; TEMP 98.2
--- NOTE | 2024-04-03 13:45 | P.PROGSL ---
Subjective DATE: 04/03/2024 FOLLOW UP VISIT. Patient with obstructive sleep apnea hypopnea syndrome return to sleep center for follow-up visit. Information from previous visit have been reviewed. Patient is using PAP equipment every night for the whole night, getting PAP supplies in time. The patient does not have significant problems with the mask, PAP unit and humidification. [place] sleepiness scale is 6. I checked information from PAP unit. PAP unit pressure 12 cm H2O. Usage is 100% for more then 4 hours, average 4.9 hours per night. Leak is increased to 58 l/m. Apnea Hypopnea Index is 2.2, which is normal. MEDICATIONS have been reviewed, please see below. During physical exam: GENERAL: A pleasant patient without any distress. VITAL SIGNS: Please see below, weight is 180 lbs. HEENT: PERRLA, EOMI.low position of soft palate, Mallapati 3. NECK: Supple. No JVD. LUNGS: Clear to percussion and to auscultation. Good air exchange. No wheezing or rhonchi. HEART: S1, S2 regular. ABDOMEN: Soft and nontender.[] EXTREMITIES: No clubbing or cyanosis. NURSE GYNECOLOGY: Awake, alert, and oriented x3. No focal deficit. Impressions: 1. Obstructive sleep apnea-hypopnea syndrome. Patient demonstrated great compliance with treatment, benefiting from treatment. 2. COPD, on oxygen supplement 4 L/min 24/7. 3. Obesity, weight was decreased on 39 pounds comparing with previous visit, BMI 37.6. 4. History of pulmonary hypertension. 5. History of core pulmonary. 6. Status post cholecystectomy. Plan: 1. Continue using PAP equipment every night for the whole night. 2. Sleep hygiene with regular time in bed for at least 7.5-8 hours 3. PAP unit should stay lower then position of the head. 4. Advised patient to remove all remaining water from humidifier canister daily and make it dry after each usage. Refill canister with fresh distilled water before each usage. 5. Watching weight. 6. Precautions related to driving. No driving if feel any sleepiness. 7. I will maintain prescription for PAP supplies including mask, tube, filters. 8. Follow up visit in 8 months or earlier if patient has any problems. Thank you very much for allowing me to participate in the management of your patient. Hernesto Mckeon MD, PhD, FAASM. Diplomat of [place] Board of Sleep Medicine, Sleep Medicine Board by [place] Board of Internal Medicine Commercial Light Fixture Assembler of [facility] [place] Objective - Vital Signs Vital Signs: Vital Signs Temp 98.2 F 04/03/24 13:15 Pulse 94 04/03/24 13:15 Resp 16 04/03/24 13:15 BP 119/69 04/03/24 13:15 Pulse Ox 91 L 04/03/24 13:15 FiO2 Intake & Output 04/02/24 04/03/24 04/03/24 18:59 06:59 18:59 Weight 81.647 kg Home Medications: Home Medications Medication Instructions Recorded Confirmed Type Albuterol Inhaler [Ventolin Hfa 1 - 2 puff INHALATION Q6HR PRN 11/23/15 04/03/24 History Inhaler] Albuterol Nebulized [Ventolin 2.5 mg INHALATION Q4H PRN 11/23/15 04/03/24 History Nebulized] Aspirin EC [Ecotrin] 81 mg PO DAILY 11/23/15 04/03/24 History Furosemide [Lasix] 20 mg PO DAILY 11/23/15 04/03/24 History Montelukast [Singulair] 10 mg PO DAILY 11/23/15 04/03/24 History Potassium Chloride ER [K-Dur 10] 10 meq PO DAILY 11/23/15 04/03/24 History Tiotropium Neptune [Spiriva] 1 cap INHALATION DAILY 11/23/15 04/03/24 History Atorvastatin [Lipitor] 10 mg PO DAILY 04/03/24 04/03/24 History Fluticasone Furoate [Arnuity 200 mcg INHALATION DAILY 04/03/24 04/03/24 History Ellipta] Losartan [Cozaar] 25 mg PO DAILY 04/03/24 04/03/24 History
== END ==
LOC: 3 N SLEEP 13:02
PROVIDERS: ATTEND Internal Medicine
DX: G47.33 Obstructive sleep apnea (adult) (pediatric) (principal); J44.9 Chronic obstructive pulmonary disease, unspecified; E66.9 Obesity, unspecified; I27.20 Pulmonary hypertension, unspecified; Z99.89 Dependence on other enabling machines and devices; Z90.49 Acquired absence of other specified parts of digestive tract; Z68.37 Body mass index [BMI] 37.0-37.9, adult; Z79.899 Other long term (current) drug therapy; Z79.51 Long term (current) use of inhaled steroids; Z87.891 Personal history of nicotine dependence
CPT/HCPCS: 99212

== ENCOUNTER 2024-04-17 07:05 | Day surgery (SDC) | payer MEDICARE, OTHER ==
[2024-04-17] MEDS ORDERED: LIDOCAINE 1% (10MG/ML) FOR IV START INTRADERMA PRN (07:31)
[2024-04-17] MEDS: IV FLUID CONTINUATION 1,000 ML IV ONE (08:00)
[2024-04-17 08:01] LABS: Glucose,Whole Blood 99 mg/dL (70-110)
[2024-04-17] MEDS: LACTATED RINGERS 1,000 ML IV SCH (08:09)
[2024-04-17 08:13] VITALS: TEMP 97.7
[2024-04-17] MEDS ORDERED: LIDOCAINE 1% INJ 10MG/ML (20 ML MDV) ONE (08:21)
[2024-04-17] MEDS ORDERED: PROPOFOL 10 MG/ML 20 ML VIAL IV ONE (08:21)
--- NOTE | 2024-04-17 08:44 | P.PCN ---
Date of Procedure: 04/17/24 Procedure(s) Performed: BRIEF HISTORY: Patient is a 68-year-old pleasant white female scheduled for an elective colonoscopy as a part of screening for colon cancer. PROCEDURE PERFORMED: Colonoscopy. PREOPERATIVE DIAGNOSIS: Screening for colon cancer. IV sedation per Anesthesia. PROCEDURE: After informed consent was obtained, the patient, was brought into the endoscopy unit. IV sedation was administered by Anesthesia under continuous monitoring. Digital rectal examination was normal. Initially the Olympus CF-160 flexible video colonoscope was then inserted in the rectum, gradually advanced into the cecum without any difficulty. Careful examination was performed as the scope was gradually being withdrawn. Ileocecal valve and the appendiceal orifice were visualized and appeared normal. Prep was excellent. Mucosa of the cecum, ascending colon, transverse colon, descending colon, sigmoid colon, and rectum appeared normal. Moderate sigmoid diverticulosis. Retroflexion was performed in the rectum and no lesions were seen. The patient tolerated the procedure well. IMPRESSION: Normal-appearing colon from rectum to cecum with no evidence of colorectal neoplasia Moderate sigmoid diverticulosis. RECOMMENDATIONS: Findings of this examination were discussed with the patient as well as her family.. She was advised to have repeat screening colonoscopy in 10 years.
[2024-04-17 08:54] VITALS: RESP 18
[2024-04-17 09:09] VITALS: BP 142/80; PULSE 78
== END 2024-04-17 09:18 | disposition home or self-care (01) ==
LOC: ORWHC2ENDO 07:05
PROVIDERS: ATTEND Internal Medicine Gastroenterology
DX: Z12.11 Encounter for screening for malignant neoplasm of colon (principal); K57.30 Diverticulosis of large intestine without perforation or abscess without bleeding; I10 Essential (primary) hypertension; E11.9 Type 2 diabetes mellitus without complications; E78.5 Hyperlipidemia, unspecified; G47.33 Obstructive sleep apnea (adult) (pediatric); J44.9 Chronic obstructive pulmonary disease, unspecified; I27.20 Pulmonary hypertension, unspecified; K21.9 Gastro-esophageal reflux disease without esophagitis; Z79.84 Long term (current) use of oral hypoglycemic drugs; Z79.899 Other long term (current) drug therapy; Z99.81 Dependence on supplemental oxygen; Z87.891 Personal history of nicotine dependence
CPT/HCPCS: J2003; J2704; G0121; 45378

== ENCOUNTER → 2024-05-11 | Outpatient (CLI) | payer MEDICARE, OTHER ==
--- NOTE | 2024-05-12 14:48 | CT ---
EXAMINATION TYPE: CT chest wo con DATE OF EXAM: 05/11/2024 1:49 PM COMPARISON: r CLINICAL INDICATION: Female, 68 years old with history of J45.50 SEVERE PERSISTENT ASTHMA, UNCOMPLICA FARZAD, Severe Persistent asthma TECHNIQUE: Axial images were obtained at 5 mm thick sections. Reconstructed images are reviewed on [employer] computer in the coronal plane. Contrast used: mL of , (none if empty) Oral contrast used: (none if empty) CT DLP: 392.40 mGycm, Automated exposure control for dose reduction was used. FINDINGS: Portion of the thyroid visualized is normal. No suspicious lung nodules or focal infiltrates are present. There is a 1.0 cm pretracheal lymph node. Additional shotty lymphadenopathy is present in the pretrac heal space and subcarinal space. The ascending aorta diameter at the level of the main pulmonary art jo is 3.6 cm. The main pulmonary artery diameter at the bifurcation is 3.[address] sections are obtained through the upper abdomen. Abdomen is essentially unremarkable. IMPRESSION: 1. No acute pulmonary process. 2. Enlarged 1.0 cm lymph node in the pretracheal space with additional shotty lymphadenopathy is nons pecific. [facility], , 05/12/2024 2:45 PM
== END | disposition home or self-care (01) ==
LOC: RADCTMAIN 13:21
PROVIDERS: ATTEND Internal Medicine Pulmonary Disease
DX: E66.01 Morbid (severe) obesity due to excess calories (principal); E11.9 Type 2 diabetes mellitus without complications; J44.9 Chronic obstructive pulmonary disease, unspecified; I50.9 Heart failure, unspecified; I27.81 Cor pulmonale (chronic); G47.33 Obstructive sleep apnea (adult) (pediatric); R59.1 Generalized enlarged lymph nodes
CPT/HCPCS: 71250